=== PATIENT | female | born 1995 | race Caucasian/White ===

== ENCOUNTER 2020-06-06 10:34 | Outpatient (CLI) | payer OTHER, SELFPAY ==
--- NOTE | ~2020-06-06 | US_ITS ---
EXAMINATION: US OB <= 14 weeks fetus DATE: 06/06/2020 11:12 INDICATION: Uncertain dates. . TECHNIQUE: Real-time transabdominal pelvic ultrasound was performed. COMPARISON: None. FINDINGS: The uterus measures 12.4 x 6.9 x 6.7 cm. There is an intrauterine gestational sac. A yolk sac is iden tified. The crown rump length measures 3.6 cm, which correlates with an estimated gestational age of 10 weeks and 4 day(s) (+/-) 1 week(s) and 0 day(s). heart motion is identified measuring 154 beats per minute (bpm) by M-mode Doppler. There is a small subchorionic hematoma. The right ovar y measures 3.7 x 2.2 x 2.1 cm. The left ovary measures 2.0 x 1.9 x 1.6 cm. There is no free fluid in the pelvis. IMPRESSION: 1. Single living intrauterine gestation with estimated date of delivery of 12/29/2020. 2. Small subchorionic hematoma. Reviewed, dictated and finalized at location A. END OPERATOR IMPRESSION: 1. Single living intrauterine gestation with estimated date of delivery of 12/29. 2. Small subchorionic hematoma.
== END 2020-06-06 10:35 | disposition home or self-care (01) ==
PROVIDERS: PCP Family Medicine; Visit Provider Obstetrics & Gynecology
DX: O46.91 Antepartum hemorrhage, unspecified, first trimester (principal); Z3A.10 10 weeks gestation of pregnancy
CPT/HCPCS: 76801

== ENCOUNTER 2020-08-07 08:49 | Outpatient (CLI) | payer OTHER, SELFPAY ==
--- NOTE | ~2020-08-07 | US_ITS ---
EXAMINATION: US OB /maternal detail DATE: 08/07/2020 13:22 INDICATION: survey TECHNIQUE: Multiple obstetric sonographic images performed. FINDINGS: Comparison to ultrasound dated 06/06/2020 There is a single living fetus in breech presentation. The placenta is posterior without placenta pr evia. Placenta is low lying measuring 2.1 cm to the cervix. Amniotic fluid volume is normal. RENE tarun ures 10.25 cm. (Normal range for gestational age is 9-20.7 cm). cardiac activity and movement is noted with a heart rate of 135 beats per minute. The following anatomy was identified as normal: 4 chamber heart 3 vessel cord cord insertion kidneys urinary bladder stomach spine diaphragm ventricles cisterna magna cerebellum The following biometric data were obtained: BPD: 43mm corresponds to gestational age 19 weeks 0 days. Head circumference: 168 mm corresponds to gestational age 19 weeks 3 days. Abdominal circumference: 145 mm corresponds to gestational age 19 weeks 5 days. Femur length: 32 mm corresponds to gestational age 19 weeks 6 days. Head circumference to abdominal circumference ratio: 1.17 (normal range for expected gestational age is 1.08-1.26). Estimated weight: 309 grams +/- 46 grams using Hadlock method. IMPRESSION: 1: Single living intrauterine with an estimated gestational age of 19weeks 3days by initial ultrasound measurements, with an EDC of 12/28/2020 in breech presentation. 2. Normal survey. 3: Low-lying posterior placenta measuring 2.1 cm to the cervix. 4: Normal RENE measures 10.25 cm. Reviewed, dictated and finalized at location A. RICAL TOOL PROGRAMMER IMPRESSION: 1: Single living intrauterine with an estimated gestational age of 19 weeks 3days by initial ultrasound measurements, with an EDC of 12/28/2020 in br eech presentation. 2. Normal survey. 3: Low-lying posterior placenta measuring 2.1 cm to the cervix. 4: Normal RENE measures 10.25 cm.
== END 2020-08-07 08:50 | disposition home or self-care (01) ==
PROVIDERS: PCP Family Medicine; Visit Provider Obstetrics & Gynecology
DX: O44.52 Low lying placenta with hemorrhage, second trimester (principal); Z3A.19 19 weeks gestation of pregnancy
CPT/HCPCS: 76805

== ENCOUNTER 2020-09-24 13:41 | Outpatient (CLI) | payer OTHER, SELFPAY ==
--- NOTE | ~2020-09-24 | US_ITS ---
EXAMINATION: US OB follow up DATE: 09/24/2020 14:25 INDICATION: Normal . Second trimester. TECHNIQUE: Real-time ultrasound of the pelvis was performed. COMPARISON: Ultrasound of 08/07/2020, 06/06/2020 FINDINGS: There is a single living fetus in transverse lie. The placenta is posterior, 6.7 cm from the cervix. heart rate is 128 beats per minute (bpm). The amniotic fluid volume is subjectively normal. The following biometric data were obtained: Biparietal diameter (BPD): 6.8 cm; head circumference (HC): 24.3 cm; abdominal circumference (AC): 22 .6 cm; femur length (FL): 4.7 cm. These measurements are discordant with FL/BPD < 5th percentile. Estimated weight is 942 g +/- 141 g, which correlates with 47th percentile when 12/29/20 is used as estimated date of delivery. As single measurements, these parameters are each equal to the following estimated gestational ages: BPD: 27 weeks 1 days. HC: 26 weeks 3 days. AC: 27 weeks 0 days. FL: 25 weeks 4 days. estimated gestational age based solely on measurements from this exam is 26 weeks 4 days +/- 1 weeks 6 days. IMPRESSION: 1. Single living fetus in transverse lie. 2. Estimated weight is 942 g +/- 141 g, which correlates with 47th percentile when 12/29/20 is u sed as estimated date of delivery. This date was set by ultrasound on 06/06/2020. 3. Discordant biometrics with low FL/BPD. Reviewed, dictated and finalized at location A. LIBRARIAN IMPRESSION: 1. Single living fetus in transverse lie. 2. Estimated weight is 942 g +/- 141 g, which correlates with 47th perce ntile when 12/29/20 is used as estimated date of delivery. This date was set by u ltrasound on 06/06/2020. 3. Discordant biometrics with low FL/BPD.
== END 2020-09-24 13:42 | disposition home or self-care (01) ==
LOC: ANHIMG 13:46
PROVIDERS: PCP Family Medicine; Visit Provider Obstetrics & Gynecology
DX: O44.40 Low lying placenta NOS or without hemorrhage, unspecified trimester (principal); Z3A.00 Weeks of gestation of pregnancy not specified
CPT/HCPCS: 76816

== ENCOUNTER 2020-10-15 14:05 | Outpatient (CLI) | payer OTHER, SELFPAY ==
[2020-10-15 15:45] LABS: Hematocrit 39.7 % (37.0-47.0); Mean Corpuscular HGB Conc 32.7 g/dl (32-36); Mean Corpuscular Hemoglobin 29.3 pg (26-34); Mean Corpuscular Volume 89.4 fl (80-100); Mean Platelet Volume 10.3 fl (7.4-10.4); Platelet Count Result 232 k/mm3 (150-375); Red Blood Count 4.44 M/mm3 (4.2-5.4); Red Cell Distribution Width 14.7 % (11.5-14.5); White Blood Count 10.2 K/mm3 (4.5-10.0)
[2020-10-15 16:03] LABS: Glucose 1 Hour PP 50gm Dose 98 mg/dL
[2020-10-15 17:19] LABS: HIV 1/2 Ab P24 Ag Result Negative (Negative)
== END 2020-10-15 14:06 | disposition home or self-care (01) ==
PROVIDERS: PCP Family Medicine; Visit Provider Obstetrics & Gynecology
DX: Z34.90 Encounter for supervision of normal pregnancy, unspecified, unspecified trimester (principal)
CPT/HCPCS: 36415; 82947; 85027; 86703; G0432

== ENCOUNTER 2020-10-23 07:40 | Outpatient (CLI) | payer OTHER, SELFPAY ==
--- NOTE | ~2020-10-23 | US_ITS ---
EXAMINATION: US OB follow up DATE: 10/23/2020 08:23 INDICATION: growth assessment during third trimester TECHNIQUE: Real-time ultrasound of the pelvis was performed. The interpreting radiologist was not pre sent for the study. COMPARISON: 09/24/2020 FINDINGS: There is a single living fetus in vertex presentation. The placenta is posterior. car diac activity and movement are noted. heart rate is 135 beats per minute (bpm). The amnio tic fluid index is 13.6 cm which is normal. The following biometric data were obtained: Biparietal diameter (BPD): 7.8 cm; head circumference (HC): 28.7 cm; abdominal circumference (AC): 27 .5 cm; femur length (FL): 5.9 cm. These measurements are concordant. Estimated weight is 1748 g +/- 262 g, which correlates with the 70th percentile when 12/29/2020 i s used as estimated date of delivery. As single measurements, these parameters are each equal to the following estimated gestational ages w ith ranges of +/- 2 standard deviations: BPD: 31 weeks 3 days +/- 3 weeks 1 days. HC: 31 weeks 4 days +/- 3 weeks 0 days. AC: 31 weeks 4 days +/- 3 weeks 0 days. FL: 30 weeks 6 days +/- 3 weeks 0 days. estimated gestational age based solely on measurements from this exam is 31 weeks 3 days +/- 2 weeks 1 days. IMPRESSION: 1. Single living fetus in vertex presentation. 2. Estimated weight is 1748 g +/- 262 g, which correlates with the 70th percentile when is used as estimated date of delivery. 3. Normal amniotic fluid index. Reviewed, dictated and finalized at location A. IMPRESSION: 1. Single living fetus in vertex presentation. 2. Estimated weight is 1748 g +/- 262 g, which correlates with the 70th p ercentile when 12/29/2020 is used as estimated date of delivery. 3. Normal amniotic fluid index.
== END 2020-10-23 07:41 | disposition home or self-care (01) ==
LOC: ANHIMG 07:43
PROVIDERS: PCP Family Medicine; Visit Provider Obstetrics & Gynecology
DX: Z36.4 Encounter for antenatal screening for fetal growth retardation (principal); Z3A.31 31 weeks gestation of pregnancy
CPT/HCPCS: 76816

== ENCOUNTER 2020-12-22 00:29 | Inpatient (IN) | payer OTHER, SELFPAY ==
[2020-12-22] VITALS (114 sets, daily range): BP systolic 94–167; BP diastolic 44–137; PULSE 75–256; RESP 20; TEMP 36.1–37.1; O2SAT 96–99; BMI 44.2
--- NOTE | 2020-12-22 00:29 | LDADM ---
This patient, Yolanda Cortez, was admitted to Labor/Delivery/Recovery 105 on 12/22/20 at 00:29. Plans for labor, pain management and were discussed with patient. Patient/family oriented to hospital policies and general routines including ID bracelet, bed and alarms, visiting hours, pain management, procedures, bathroom and other care routines, personal items, smoking policy, room service/diet and guest tray routines, security routines, and visiting hours. Patient/Family are encouraged to report perceived risks to care and to ask questions if they do not understand what they are told or what they should do. See OBIX for further documentation.
[2020-12-22] MEDS: LACTATED RINGERS 1,000 ML 125 ML IV CONT ×3 (01:48→16:15)
[2020-12-22] MEDS: OXYTOCIN 30 UNITS/NS 500 ML 30 UNITS/500 ML BAG 6 UNITS IV CONT (01:48)
[2020-12-22 01:49] LABS: Basophils Percent Auto 0.3 % (0.2-1.2); Eosinophils Absolute Auto 0.1 K/mm3 (0-0.3); Eosinophils Percent Auto 1.2 % (0-4.4); Hematocrit 39.6 % (37.0-47.0); Hemoglobin 13.2 g/dL (12.0-15.0); Immature Granulocyte Percent A 0.9 % (0-0.5); Lymphocytes Percent Auto 17.2 % (18.3-44.2); Mean Corpuscular HGB Conc 33.3 g/dl (32-36); Mean Corpuscular Hemoglobin 29.6 pg (26-34); Mean Corpuscular Volume 88.8 fl (80-100); Mean Platelet Volume 10.8 fl (7.4-10.4); Monocytes Absolute Auto 0.7 K/mm3 (0.1-0.6); Monocytes Percent Auto 6.1 % (2.6-8.5); Neutrophils Absolute Auto 8.2 K/mm3 (1.3-6.7); Neutrophils Percent Auto 74.3 % (45.5-73.1); Platelet Count Result 226 k/mm3 (150-375); Red Blood Count 4.46 M/mm3 (4.2-5.4); Red Cell Distribution Width 13.3 % (11.5-14.5); White Blood Count 11.1 K/mm3 (4.5-10.0)
--- NOTE | 2020-12-22 02:28 | WPDANESEPP ---
Anes - Eval Pre Procedure Procedure: Labor epidural Date/Time: 12/22/20 02:28 Surgeon: Alexi Preop Diagnosis: Abd pain with contractions Pre Op Diagnosis: IOL Patient Data Age: 24 Gender: F Height: 5 ft 8 in Weight: 132 kg Last Vital Signs Pulse 109 H 12/22/20 01:58 BP 137/91 H 12/22/20 01:58 Allergies Allergy/AdvReac Type Severity Reaction Status Date / Time pollen extracts Allergy Sneezing Verified 12/21/20 14:55 tree and shrub pollen Allergy Sneezing Verified 12/21/20 14:55 DUST Allergy Watery Eye Uncoded 12/14/20 14:36 Home Medications Medication Instructions Recorded Confirmed Type montelukast 10 mg tablet 10 mg PO DAILY 02/27/20 12/22/20 History docusate sodium 100 mg capsule 100 mg PO DAILY 11/16/20 12/22/20 History vedolizumab 300 mg intravenous 300 mg IV ONCE 11/16/20 12/22/20 History solution ferrous sulfate 325 mg PO ONCE 12/22/20 12/22/20 History vit no.[id number] 1 tablet PO DAILY 12/22/20 12/22/20 History [Classic ] Laboratory Tests 12/22/20 12/22/20 01:39 01:39 WBC 11.1 K/mm3 H K/mm3 (4.5-10.0) RBC 4.46 M/mm3 M/mm3 (4.2-5.4) Hgb 13.2 g/dL g/dL (12.0-15.0) Hct 39.6 % % (37.0-47.0) MCV 88.8 fl fl (80-100) MCH 29.6 pg pg (26-34) MCHC 33.3 g/dl g/dl (32-36) RDW 13.3 % % (11.5-14.5) Plt Count 226 k/mm3 k/mm3 (150-375) MPV 10.8 fl H fl (7.4-10.4) Immature Gran % (Auto) 0.9 % H % (0-0.5) Neut % (Auto) 74.3 % H % (45.5-73.1) Lymph % (Auto) 17.2 % L % (18.3-44.2) [place] % (Auto) 6.1 % % (2.6-8.5) Eos % (Auto) 1.2 % % (0-4.4) Baso % (Auto) 0.3 % % (0.2-1.2) Lymph # (Auto) 1.90 K/mm3 K/mm3 (0.9-3.2) [place] # (Auto) 0.7 K/mm3 H K/mm3 (0.1-0.6) Eos # (Auto) 0.1 K/mm3 K/mm3 (0-0.3) Baso # (Auto) 0.0 K/mm3 K/mm3 (0.0-0.1) Abs Immat Gran (auto) 0.10 K/mm3 H K/mm3 (0.00-0.031) Absolute Neuts (auto) 8.2 K/mm3 H K/mm3 (1.3-6.7) Absolute Nucleated RBC 0.0 K/mm3 K/mm3 (0.0-0.012) Nucleated RBC % 0.0 % % (0.0-0.2) RPR Pending Patient hx anesthesia problems: none Family hx anesthesia problems: none PMFSH Past Medical History Medical History Anemia Crohn's colitis HPV (human papilloma virus) infection Morbid obesity Surgical History Surgical History History of colposcopy 2019 [place] teeth removed Family History Family History Father Diabetes mellitus Mother Depression Social History Social History Smoking status: Never smoker Second hand tobacco smoke exposure: Yes Alcohol intake: current Drinks per week: 2 Substance use: unknown Spiritual care concerns: No Exam Day of Procedure 12/22/20 02:28 Patient weight: morbidly obese Airway: Mallampati scale class II Neurological: alert and oriented
--- NOTE | 2020-12-22 07:23 | WPDOBADMIT ---
Obstetrics - Admit Note Admission Note: record reviewed. No pertinent additions to the history and/or any subsequent changes in the physical findings that are not consistent with the expected course of the were found. Additions to the history and/or subsequent changes in the physical findings follow. G1 at 39+0 for induction of labor. Cervix 2-3/50/-2. AROM with clear fluid. GBS negative. Continue pitocin.
[2020-12-22 08:57] LABS: Rapid Plasma Reagin Non-Reactive (NonReactive)
[2020-12-22] MEDS: ONDANSETRON INJ 4 MG/2 ML VIAL IV PUSH (11:22)
[2020-12-22 12:35] LABS: Amphetamine Screen Urine Negative (Negative); Barbiturate Screen Urine Negative (Negative); Benzodiazepines Screen Urine Negative (Negative); Cannabinoid Screen Urine Negative (Negative); Cocaine Screen Urine Negative (Negative); Methadone Screen Urine Negative (Negative); Opiate Screen Urine Negative (Negative); Phencyclidine Screen Urine Negative (Negative)
[2020-12-22] MEDS: CARBOPROST TROMETHAMINE 250 MCG/ML AMPUL (22:50)
--- NOTE | 2020-12-22 22:58 | PM.OBPRVD ---
OB - Delivery Note Procedure Delivery date: 12/22/20 Procedure: events: Labor Induction Induction method: per pitocin protocol Delivery augmentation: rupture of membranes Delivery monitor: external FHT and internal uterine Route of delivery: Laceration Description: Periurethral (right) and Perineal - 2nd Degree Delivery repair: vicryl (3-0 (periurethral), 2-0 (perineal)) Specimen: No Quantitative Blood Loss (ml): 785 Anesthesia type: Epidural Disposition: floor Complications: hemorrhage, responded to uterine massage, pitocin, and hemabate Baby Date of : 12/22/20 Time of : 22:27 Weeks of gestation at delivery: 39 Infant gender: Female Weight (pounds): 8 Weight (ounces): 8 presentation: vertex position: Right Occiput Anterior Placenta delivery description: Spontaneous cord vessel description: 3 Vessels and Clamped/Cut score one minute: 6 score five minutes: 9
[2020-12-22] MEDS: OXYTOCIN 30 UNITS/NS 500 ML 30 UNITS/500 ML BAG 125 UNITS IV CONT (23:37)
[2020-12-23] VITALS (11 sets, daily range): BP systolic 125–150; BP diastolic 68–98; PULSE 88–105; RESP 13–16; TEMP 36.4–37.3; O2SAT 97–99
[2020-12-23] MEDS: WITCH HAZEL 40 PADS 1 PAD TOPICAL (00:53)
[2020-12-23] MEDS: BENZOCAINE 20% AER SPR (*SP) 56 GM CAN 1 SPRAY TOPICAL (00:53)
[2020-12-23] MEDS: IBUPROFEN 600 MG TABLET PO ×3 (01:51→17:11)
[2020-12-23 05:52] LABS: Hematocrit 33.5 % (37.0-47.0); Hemoglobin 10.9 g/dL (12.0-15.0)
[2020-12-23] MEDS: POLYSACCHARIDE IRON COMPLEX 150 MG CAPSULE PO ×2 (08:00→17:00)
--- NOTE | 2020-12-23 08:45 | PM.OBPNVD ---
OB - PN: Subj Subjective Date/time seen: 12/23/20 08:45 Patient comments: pain well controlled, tolerating diet and flatus present baby status: doing well and nursing well [place] feeding status: exclusively breast feeding Narrative: Pain well controlled Tolerating regular diet Denies N/V/Cp/SOB Ambulating and urinating without difficulty Lochia like her menses Baby girl doing well and BF OB - PN: Obj Data Labs CBC & Chem 7: 12/23/20 05:02 Labs: Laboratory Results - last 24 hr 12/22/20 12/22/20 12/23/20 01:39 10:30 05:02 Hgb 10.9 L Hct 33.5 L Urine Opiates Screen Negative Urine Methadone Screen Negative Ur Barbiturates Screen Negative Ur Phencyclidine Scrn Negative Ur Amphetamine Screen Negative U Benzodiazepines Scrn Negative Urine Cocaine Screen Negative U Cannabinoids Screen Negative RPR Non-reactive OB - PN A/P Plan day: 1 Plan: routine care Comments: BF instructed Encourage ambulation Anticipate D/C tomorrow Time Spent With Patient Time: Total time spent is greater than 50% in coordination of care (as documented) at patient's floor/unit and/or counseling patient: Time with patient: 15 - 25 minutes Review of Systems Constitutional: Constitutional: Reports as per HPI, Denies chills, Denies fatigue, Denies fever(s) and Denies headache(s) Eyes: Eyes: Denies blurry vision and Denies change in vision ENT: Reports as per HPI and Reports Normal hearing present Cardiovascular: Cardiovascular: Denies chest pain and Denies dyspnea Respiratory: Respiratory: Reports as per HPI Gastrointestinal: Gastrointestinal: Reports as per HPI Genitourinary: Genitourinary: Reports as per HPI Exam Const: General: cooperative, healthy appearing, comfortable, no acute distress, well developed, alert, awake, Physically active and well groomed Nutritional Appearance: obese Orientation/consciousness: patient oriented x3 Limitations: no limitations HENMT: Head: normal to inspection Ears: hearing grossly normal bilaterally Resp: Effort & Inspection: normal respiratory effort and able to speak in complete sentences Auscultation: clear to auscultation bilaterally Cardio: Rate: regular rate Rhythm: regular rhythm GI: Inspection: normal to inspection, no edema and non-distended GI Palp: No abdominal tenderness, Yes Soft to palpation, No Tenderness to palpation present (GI) and Yes Other GI palpation findings present (Fundus firm below umbilicus) Auscultation: normal bowel sounds Rectal Exam: deferred
[2020-12-23] MEDS: MULTIVIT/MIN/PREN/FOL AC/IRON TABLET 1 TAB PO (10:20)
[2020-12-23] MEDS: DOCUSATE SODIUM 100 MG CAPSULE PO ×2 (10:20→17:10)
--- NOTE | 2020-12-23 11:17 | PC.NURSE ---
0755 Mother called out for assist with feeding. Consulted with patient, mother states has been sleepy with some difficulties latching. Demonstrated stimulation techniques to wake infant for feeding. Infant sleepy and not waking. Advised skin to skin and attempt again in 15-30 minutes. Reviewed infant feeding cues, frequencies, duration of feedings, feeding elimination flow sheet, and signs of adequate intake. 0815 Assisted with to breast. Reviewed positioning/alignment in cross cradle, holding breast in ?U? hold and guided asymmetrical latch on. able to latch correctly within a few attempts. nursed eagerly, with steady draws and frequent swallowing followed with long pausing. Reviewed signs of a correct latch, effective nursing and suck swallow ratio. Infant would slip to shallow latch, mother reports tenderness. Demonstrated how to adjust latch more deeply while feeding. Mother reports she can feel change in latch and has no tenderness. Nipple care reviewed of lanolin after feedings, warm compresses as needed. Suggested mother stimulate while feeding to increase stimulate, increase intake and to assist with maintaining deep latch. Instructed mother to call out for RN assistance if she is unable to latch for feeding or she has discomfort with nursing. Instructed feeding should be initiated three hours from start of last feeding or if feeding cues are noted before. Mother voiced understanding of information shared.
--- NOTE | 2020-12-23 11:30 | PC.NURSE ---
Mother called out for assist with feeding. Demonstrated stimulation techniques to wake for feeding. Assisted with to breast. remains sleepy making weak attempts to latch. Suggested skin to skin for 15-30 minutes and attempt again.
--- NOTE | 2020-12-23 12:25 | PC.NURSE ---
Mother called out for assist with feeding. Demonstrated stimulation techniques to wake for feeding. Assisted with to breast. Reviewed positioning/alignment in cross cradle, holding breast in ?U? hold and guided asymmetrical latch on. Several attempts before infant able to latch correctly. Infant nursed eagerly, with steady draws and frequent swallowing noted. Reviewed signs of a correct latch, effective nursing and suck swallow ratio. Infant was able to maintain latch without discomfort to mother. Demonstrated how to adjust latch more deeply while feeding. Mother reports she can feel change in latch and has no tenderness. Nipple care reviewed of lanolin after feedings, warm compresses as needed. Suggested mother stimulate while feeding to increase stimulate, increase intake and to assist with maintaining deep latch. Instructed mother to call out for RN assistance if she is unable to latch for feeding or she has discomfort with nursing. Instructed feeding should be initiated three hours from start of last feeding or if feeding cues are noted before. Mother voiced understanding of information shared.
--- NOTE | 2020-12-23 15:44 | WPDANLDPN2 ---
Anes-Prog Note L&D Date/Time: 12/23/20 15:44 Comfortable throughout: labor and delivery Neuraxial method: epidural Epidural/Spinal procedure site: clean & non-tender Neuro status: Neuro function grossly intact. Cardiovascular status: normal Respiratory status: normal Airway patency: baseline Mental status: baseline Post-Op hydration status: normal Vital Signs: Last Vital Signs Temp 37.3 C 12/23/20 12:10 Pulse 105 H 12/23/20 13:00 Resp 16 12/23/20 13:00 BP 134/68 12/23/20 12:10 Pulse Ox 98 12/23/20 13:00 Pain score (VAS): 0/10. Patient resting in bed at time of assessment, appears comfortable. Support person at bedside. I/O: Intake & Output 12/22/20 12/23/20 12/23/20 23:59 07:59 15:59 Intake Total 2300 Output Total 785 125 Balance 1515 -125 Post-procedural complaints: none Patient feedback: Patient satisfied with anesthetic care.
[2020-12-23] MEDS: HYDROcodone/acetaminophen (*CRX) 5-325 MG TABLET 1 TAB PO (21:51)
[2020-12-24] MEDS: HYDROcodone/acetaminophen (*CRX) 5-325 MG TABLET 1 TAB PO ×2 (05:04→10:44)
[2020-12-24] MEDS: IBUPROFEN 600 MG TABLET PO ×2 (05:05→10:44)
[2020-12-24 07:30] VITALS: BP 145/91; PULSE 97; RESP 18; TEMP 36.2; O2SAT 97
--- NOTE | 2020-12-24 08:53 | PM.OBPNVD ---
OB - PN: Subj Subjective Date/time seen: 12/24/20 08:53 Patient comments: no complaints, pain well controlled, tolerating diet and flatus present [place] baby status: doing well and nursing well feeding status: exclusively breast feeding Narrative: Pain well controlled Tolerating regular diet Ambulating and urinating without difficulty Lochia like her menses Baby girl doing well and BF OB - PN: Obj Data Labs CBC & Chem 7: 12/23/20 05:02 OB - PN A/P Plan day: 2 Plan: discharge home and follow up 6 weeks Comments: BF instructed Time Spent With Patient Time: Total time spent is greater than 50% in coordination of care (as documented) at patient's floor/unit and/or counseling patient: Time with patient: 15 - 25 minutes Review of Systems Constitutional: Constitutional: Reports as per HPI, Denies chills, Denies fatigue, Denies fever(s) and Denies headache(s) Eyes: Eyes: Reports as per HPI ENT: Reports as per HPI and Reports Normal hearing present Cardiovascular: Cardiovascular: Reports as per HPI, Denies chest pain and Denies dyspnea Respiratory: Respiratory: Denies cough and Denies dyspnea Gastrointestinal: Gastrointestinal: Reports as per HPI Genitourinary: Genitourinary: Reports as per HPI Exam Const: General: cooperative, healthy appearing, comfortable, no acute distress, well developed, alert, awake, Physically active and well groomed Nutritional Appearance: obese Orientation/consciousness: patient oriented x3 Limitations: no limitations HENMT: Ears: hearing grossly normal bilaterally Eyes: General: appearance normal, both eyes and all related structures Resp: Effort & Inspection: normal respiratory effort and able to speak in complete sentences Auscultation: clear to auscultation bilaterally Cardio: Rate: regular rate Rhythm: regular rhythm GI: Inspection: normal to inspection GI Palp: No abdominal tenderness, Yes Soft to palpation and Yes Other GI palpation findings present (Fundus firm below umbilicus) Rectal Exam: deferred
--- NOTE | 2020-12-24 08:56 | PM.OBDSVD ---
DS: Admitting Diagnosis Admitting Diagnosis Admitting Diagnosis: Induction of labor at 39 weeks OB - DS: Summary OB Procedures : None OB Procedures Intrapartum: Spontaneous Vag Delivery OB Procedures: : None Peripartum Data Delivery Method: Natural Vaginal complications: none Status at Discharge Functional status at discharge: independent ambulation Overall status at discharge: patient is progressing back to baseline Time Spent with Patient Time attestation: Total time spent providing and/or coordinating discharge services: Time spent: Less than 30 minutes Exam Const: General: cooperative, healthy appearing, comfortable, no acute distress, well developed, alert, awake, Physically active and well groomed Nutritional Appearance: obese Orientation/consciousness: patient oriented x3 Limitations: no limitations HENMT: Head: normal to inspection and No palpable skull fracture present Ears: hearing grossly normal bilaterally Resp: Effort & Inspection: normal respiratory effort and able to speak in complete sentences Auscultation: clear to auscultation bilaterally Cardio: Rate: regular rate Rhythm: regular rhythm GI: Inspection: normal to inspection GI Palp: No abdominal tenderness, Yes Soft to palpation and Yes Other GI palpation findings present (Fundus firm below umbilicus) Auscultation: normal bowel sounds Rectal Exam: deferred Discharge Plan Discharge Attending physician on discharge: Jennifer Ely Discharging Clinician: Jennifer Ely Patient Disposition: Home, Self-Care Activity: may drive after 2 weeks, as tolerated and pelvic rest Diet: regular Patient Instructions: Antibiotic Form Stand Alone Forms: General Discharge Information Follow-up/Referrals: Jannet Truong MD [Physician] - Discharge Medications: New docusate sodium 100 mg Capsule 100 mg PO BID PRN (Reason: Constipation) Qty: 60 RF: 0 ibuprofen 600 mg Tablet 600 mg PO Q6H PRN (Reason: Cramping) Qty: 60 RF: 0 Continued montelukast 10 mg tablet 10 mg PO DAILY RF: 0 docusate sodium [Colace] 100 mg capsule 100 mg PO DAILY RF: 0 Entyvio 300 mg recon soln 300 mg IV ONCE RF: 0 Classic 28 mg iron- 800 mcg Tablet 1 tablet PO DAILY RF: 0 ferrous sulfate 325 mg (65 mg iron) tablet,delayed release (DR/EC) 325 mg PO ONCE RF: 0 Date of admission: 12/22/20 00:29 Primary Care Provider: Mila Alicia Admitting Provider: Jannet Truong Attending physician on admission: Jannet Truong Condition: Stable
--- NOTE | 2020-12-24 09:40 | PC.NURSE ---
Observed mother is able to independently latch with appropriate positioning/alignment. Mother reports infant is more awake and eager to feed. Mother states she will most likely bottle feed at night. Reviewed supply and demand of milk supply. She denies any nipple discomfort, is feeding as required and waking to feed if needed. has had at least 8 Breast/bottle feedings in the past 24 hours, and is currently meeting outcomes for weight, output, jaundice and feeding frequencies. Mother states she feels confident to continue effective at home. Reviewed transition to breast milk, signs of adequate intake, and engorgement/relief. Instructed to call ICP if intake/output less than required. Reviewed regular medications mother is taking. Information provided per Ama. Reviewed community resources on the [facility] website and in the Mom/Baby guide. Information on outpatient services provided. Mother has no further questions at this time.
[2020-12-24] MEDS: POLYSACCHARIDE IRON COMPLEX 150 MG CAPSULE PO (10:44)
[2020-12-24] MEDS: MULTIVIT/MIN/PREN/FOL AC/IRON TABLET 1 TAB PO (10:44)
[2020-12-24] MEDS: MEASLES,MUMPS,RUBELLA VACCINE 0.5 ML VIAL SUB-Q (10:45)
[2020-12-24] MEDS: WITCH HAZEL 40 PADS 1 PAD TOPICAL (10:45)
[2020-12-24] MEDS: BENZOCAINE 20% AER SPR (*SP) 56 GM CAN 1 SPRAY TOPICAL (10:45)
[2020-12-25 09:45] VITALS: BP 140/80; PULSE 88; RESP 20; TEMP 37.1; O2SAT 100
== END 2020-12-24 12:55 | disposition home or self-care (01) | DRG 806 ==
LOC: ANHLDR 00:42 → ANHOB2 12-24 08:58 → ANHLDR 12-28 11:46 → ANHOB2 12-28 11:46
PROVIDERS: Admitting Provider Obstetrics & Gynecology; PCP Family Medicine; Visit Provider Obstetrics & Gynecology
DX: O99.62 Diseases of the digestive system complicating childbirth (principal); K50.90 Crohn's disease, unspecified, without complications; Z37.0 Single live birth; Z3A.39 39 weeks gestation of pregnancy; O99.02 Anemia complicating childbirth; O72.1 Other immediate postpartum hemorrhage; O70.1 Second degree perineal laceration during delivery; O71.82 Other specified trauma to perineum and vulva; D64.9 Anemia, unspecified; O99.214 Obesity complicating childbirth; E66.01 Morbid (severe) obesity due to excess calories
CPT/HCPCS: 36415; 80307; 85014; 85018; 85025; 86592; 86850; 86900; 86901; 90710; A9270; J2405; J2590; J2795; J7120

== ENCOUNTER 2021-05-19 08:13 | Emergency (ER) | payer OTHER, SELFPAY ==
[2021-05-19 08:25] VITALS: BP 130/90; PULSE 117; RESP 28; TEMP 36; O2SAT 95
--- NOTE | 2021-05-19 08:36 | ED.URI ---
HPI - URI/Sore Throat General Chief Complaint: Shortness of Breath/Dyspnea Stated Complaint: Breathing problems Time Seen by Provider: 05/19/21 08:37 Source: patient History of Present Illness HPI Narrative: patient presents with shortness of breath. no history of asthma. does have seasonal allergies. reports history of chrons disease. reports seasonal allergies, worse in the fall. Patient states her boyfriend was sick last week with upper respiratory symptoms. Patient states 3 days ago she started with nasal congestion cough sore throat and headache. Patient states the symptoms have resolved but then she started with the shortness of breath yesterday. Patient is not vaccinated for Covid and works from home. Related Data Home Medications Medication Instructions Recorded Confirmed montelukast 10 mg tablet 10 mg PO DAILY 02/27/20 05/19/21 vedolizumab 300 mg intravenous 300 mg IV ONCE 11/16/20 05/19/21 solution ferrous sulfate 325 mg PO ONCE 12/22/20 05/19/21 levonorgestrel 20 mcg/24 hours (7 1 insert INTRAUTERINE .COMPLEX 04/08/21 04/08/21 yrs) 52 mg intrauterine device Allergies Allergy/AdvReac Type Severity Reaction Status Date / Time pollen extracts Allergy Sneezing Verified 04/08/21 14:36 tree and shrub pollen Allergy Sneezing Verified 04/08/21 14:36 DUST Allergy Watery Eye Uncoded 03/11/21 13:07 Review of Systems Review of Systems: CONSTITUTIONAL: Denies fever, chills, or sweats. EYES: Denies visual changes, redness, or discharge. ENT: Denies rhinorrhea, congestion, sore throat, or otalgia. CARDIOVASCULAR: Denies chest pain, palpitations, or edema. RESPIRATORY: Denies cough or dyspnea. GASTROINTESTINAL: Denies abdominal pain, nausea, vomiting, or diarrhea. GENITOURINARY: Denies dysuria or hematuria. SKIN: Denies rash or itching. MUSCULOSKELETAL: Denies back pain, joint pain, or myalgia. NEUROLOGIC: Denies headache, numbness, or weakness. PSYCHIATRIC: Denies anxiety or depression. [facility] Past Medical History Medical History Anemia Crohn's colitis HPV (human papilloma virus) infection Morbid obesity Surgical History Surgical History History of colposcopy 2019 [place] teeth removed Family History Family History Father Diabetes mellitus Mother Depression Social History Social History Smoking status: Never smoker Second hand tobacco smoke exposure: Yes Alcohol intake: current Drinks per week: 2 Substance use: unknown Spiritual care concerns: No Comments At time of signature, agree with nursing past medical, surgical, social and family history. There is no relevant family history pertinent to the presenting complaint Exam Narrative: GENERAL: Well-appearing, well-nourished, and in no acute distress. HEAD: Normocephalic, atraumatic. EYES: PERRLA and EOMI. ENT: Nares clear, no rhinorrhea or epistaxis. Mucous membranes moist. NECK: Supple. CHEST:lungs diminished through upon arrival. after nebulizer treatment Clear to auscultation.patient states feels much better an is ready to go home. No respiratory distress. HEART: Regular rate and rhythm. No murmur heard. Normal peripheral pulses. ABDOMEN: Soft, nontender, nondistended, normal active bowel sounds. EXTREMITIES: Normal range of motion. No edema. SKIN: Warm, dry, no rash. NEURO: No focal deficits. Alert and oriented x3. [place] Coma Scale Eye Opening: Spontaneous 4 [place] Coma Scale Motor: Obeys Commands 6 [place] Coma Scale Verbal: Oriented 5 [place]ait[place] Coma Scale Total 15 Course Vital Signs Vital signs: Vital Signs Temperature 36.0 C L 05/19/21 08:25 Pulse Rate 117 H 05/19/21 08:25 Respiratory Rate 28 H 05/19/21 08:25 Blood Pressure 130/90 05/19/21 08:25 Pulse
[2021-05-19] MEDS: ALBUTEROL SULFATE NEB 2.5 MG/3 ML INH INHALATION (08:39)
[2021-05-19] MEDS: IPRATROPIUM BR 0.02% INH SOLN 0.5 MG/2.5 ML VIAL INHALATION (08:39)
[2021-05-19] MEDS: methylPREDNISolone SOD SUCC 125 MG VIAL IM (08:44)
[2021-05-19 08:45] VITALS: PULSE 117; RESP 28; O2SAT 95
[2021-05-19 09:00] VITALS: PULSE 108; RESP 20; O2SAT 100
== END 2021-05-19 10:40 | disposition home or self-care (01) ==
PROVIDERS: Emergency Provider Nurse Practitioner Family; PCP Family Medicine
DX: R06.02 Shortness of breath (principal); T78.40XA Allergy, unspecified, initial encounter; Z20.822 Contact with and (suspected) exposure to COVID-19; K50.90 Crohn's disease, unspecified, without complications; E66.01 Morbid (severe) obesity due to excess calories; Z68.39 Body mass index [BMI] 39.0-39.9, adult
CPT/HCPCS: 87426; 96372; 99213; C9803; G0463; J2930

== ENCOUNTER 2023-01-07 13:28 | Emergency (ER) | payer OTHER, SELFPAY ==
--- NOTE | ~2023-01-07 | XR_ITS ---
XR ankle LT min 3V 01/07/2023 13:45 Indication: Left ankle pain Procedure: 4 views left ankle Comparison: No prior studies for comparison. Findings: Ankle mortise intact. Moderate lateral soft tissue swelling. No acute fracture or traumatic malalignment. No foreign bodies. Talar dome is normal. Impression: 1: No acute bone or joint abnormality. Reviewed, dictated and finalized at location A. Impression: 1: No acute bone or joint abnormality.
[2023-01-07 13:36] VITALS: BP 126/78; PULSE 94; RESP 16; TEMP 36.5; O2SAT 98
--- NOTE | 2023-01-07 13:55 | ED.LOWEXIN ---
HPI - Extremity Injury (Lower) General Chief Complaint: Extremity Injury, Lower Stated Complaint: lt ankle injury Time Seen by Provider: 01/07/23 13:55 Source: patient and RN notes reviewed Mode of arrival: ambulatory Limitations: no limitations History of Present Illness HPI Narrative: 27-year-old female presents with concern for left ankle injury. She reports yesterday she stepped down a step wrong in her ankle turned. She reports it was painful to walk on so she started using crutches. She reports it became swollen and bruised today. Reports she has been elevating it, applying ice using MD complaint: ankle injury Related Data Home Medications Medication Instructions Recorded Confirmed montelukast 10 mg tablet 10 mg PO DAILY 02/27/20 06/08/21 vedolizumab 300 mg intravenous 300 mg IV ONCE 11/16/20 06/08/21 solution (Entyvio) ferrous sulfate 325 mg (65 mg 325 mg PO ONCE 12/22/20 06/08/21 iron) tablet,delayed release levonorgestrel 21 mcg/24 hours (8 1 device intrauterine ONCE 04/26/22 yrs) 52 mg intrauterine device (Mirena) Allergies Allergy/AdvReac Type Severity Reaction Status Date / Time pollen extracts Allergy Sneezing Verified 01/07/23 13:30 tree and shrub pollen Allergy Sneezing Verified 01/07/23 13:30 DUST Allergy Watery Eye Uncoded 01/07/23 13:30 Review of Systems Review of Systems: CONSTITUTIONAL: Denies malaise, chills, sweats, or fever. SKIN: Denies rash or itching, open skin, laceration, abrasion, redness, warmth MUSCULOSKELETAL: Reports left ankle pain, swelling, bruising NEUROLOGIC: Denies numbness, weakness All systems reviewed & are unremarkable except as noted in HPI and below PMFSH Past Medical History Medical History Anemia Crohn's colitis HPV (human papilloma virus) infection Morbid obesity Surgical History Surgical History History of colposcopy 2019 [place] teeth removed Family History Family History Father Diabetes mellitus Mother Depression Social History Social History Smoking status: Never smoker Second hand tobacco smoke exposure: Yes Alcohol intake: current Drinks per week: 2 Substance use: never Spiritual care concerns: No Comments At time of signature, agree with nursing past medical, surgical, social and family history. There is no relevant family history pertinent to the presenting complaint Exam Narrative: GENERAL: Well-appearing, well-nourished, and in no acute distress. HEAD: Normocephalic, atraumatic. EYES: PERRLA, conjunctivae clear NECK: Supple. CHEST: Speaks in full sentences. No respiratory distress. HEART: Regular rate and rhythm. Normal and equal peripheral pulses. EXTREMITIES: Left ankle, digits have grossly normal strength and sensation, grossly normal range of motion. Moderate lateral edema and ecchymosis. Normal sensation with sensitivity to light touch and pain. Lateral ankle tenderness. No open wounds, no skin tenting, no devitalized tissue or atrophy, no trophic changes, no obvious deformity, alignment normal, nearby joints and structures intact. Distal pulses palpable and equal bilaterally, skin warm, dry, pink. Capillary refill less than 3 seconds. SKIN: Warm, dry, no rash. NEURO: Alert and oriented x3. PSYCH: Normal mood and affect Course Course Emergency Course: Patient is aware of diagnosis, understands and agrees to treatment plan. Anticipatory guidance given. Patient agrees to follow-up as directed and is aware of reasons to seek care at the emergency department. Portions of this record may have been created with voice recognition software Level of Care: Express Care Visit Vital Signs Vital signs: Vital Signs Temperature 97.7 F 01/07/23 13:36 Pulse Rate 94
== END 2023-01-07 14:07 | disposition home or self-care (01) ==
PROVIDERS: Emergency Provider Nurse Practitioner; PCP Family Medicine
DX: S93.402A Sprain of unspecified ligament of left ankle, initial encounter (principal); X50.9XXA Other and unspecified overexertion or strenuous movements or postures, initial encounter; K50.90 Crohn's disease, unspecified, without complications; E66.01 Morbid (severe) obesity due to excess calories; Z68.36 Body mass index [BMI] 36.0-36.9, adult
CPT/HCPCS: 73610; 99213; G0463